=== PATIENT | female | born 1995 | race Caucasian/White ===

== ENCOUNTER 2018-07-08 12:58 | Emergency (ER) | payer MEDICAID ==
[~2018-07-08] VITALS: Ht 167.6 cm; Wt 49.4 kg
[2018-07-08 13:41] VITALS: BP 124/74; Ht 167.6 cm; Wt 49.4 kg
== END 2018-07-08 15:41 | disposition home or self-care (01) ==
LOC: ED 12:58
DX: J06.9 Acute upper respiratory infection, unspecified (principal)